=== PATIENT | female | born 1960 | race Caucasian/White ===

== ENCOUNTER 2021-03-23 06:41 | Inpatient (IN) ==
[2021-03-23] MEDS ORDERED: 0.9 % Sodium Chloride 1,000 ML IVC ONE (07:33)
[2021-03-23] MEDS ORDERED: Isovue-370 500 ML BOTTLE IVP ONE (07:33)
[2021-03-23 07:35] LABS: Basophils % 0.4 %; Eosinophils # 0.1 K/mcL (0.0-0.6); Eosinophils % 1.7 %; Hematocrit 40.8 % (35.3-44.9); Hemoglobin 13.5 g/dL (11.5-15.4); Immature Granulocytes % 0.4 % (0-4); Lymphocytes # 1.2 K/mcL (0.6-4.6); Lymphocytes % 17.3 %; Mean Corpuscular HGB Conc 33.1 g/dL (31.6-35.5); Mean Corpuscular Hemoglobin 30.4 pg (28.0-33.3); Mean Corpuscular Volume 91.9 fL (83.0-100.0); Mean Platelet Volume 9.9 fL (9.4-12.4); Monocytes # 0.5 K/mcL (0.0-1.3); Monocytes % 6.5 %; Neutrophils # 5.3 K/mcL (1.6-8.9); Platelet Count 183 K/mcL (140-400); Red Blood Count 4.44 M/mcL (3.82-4.97); Red Cell Distribution Width 13.4 % (11.5-14.5); Segmented Neutrophils % 73.7 %; White Blood Count 7.1 K/mcL (4.3-11.1)
[2021-03-23 07:47] LABS: INR 1.1; Prothrombin Time 12.4 Seconds (9.4-12.1)
[2021-03-23 07:49] LABS: Activated Partial Thrombo Time 31.5 Seconds (26.0-36.0)
[2021-03-23 07:58] LABS: Alanine Aminotransferase 29 Units/L (7-52); Albumin/Globulin Ratio 1.6 (1.1-2.2); Alkaline Phosphatase 56 Units/L (34-104); Aspartate Amino Transferase 18 Units/L (13-39); BUN/Creatinine Ratio 33 (6-26); Bilirubin,Direct 0.2 mg/dL (0.0-0.2); Bilirubin,Indirect 0.6 mg/dL (0.0-1.0); Bilirubin,Total 0.8 mg/dL (0.3-1.0); Blood Urea Nitrogen 24 mg/dL (6-20); Calcium 8.8 mg/dL (8.6-10.3); Carbon Dioxide 26 mEq/L (23-29); Chloride 106 mEq/L (98-107); Globulin 2.5 g/dL (2.4-3.5); Glucose 128 mg/dL (70-105); Osmolality,Calculated 294 (280-300); Potassium 3.5 mEq/L (3.5-5.1); Sodium 139 mEq/L (136-145); Total Protein 6.5 g/dL (6.4-8.9); Troponin I < 0.03 ng/mL (< 0.04); eGFR For African Americans > 60 (> 60); eGFR For Non-African Americans > 60 (> 60)
[2021-03-23 08:07] LABS: Magnesium 1.8 mg/dL (1.6-2.6)
[2021-03-23 08:20] LABS: Thyroid Stimulating Hormone 2.364 mcIU/mL (0.340-5.600)
[2021-03-23 08:48] LABS: Adenovirus Not Detected (Not Detect); Bordetella Pertussis Not Detected (Not Detect); Chlamydophila pneumoniae Not Detected (Not Detect); Coronavirus 229E Not Detected (Not Detect); Coronavirus HKU1 Not Detected (Not Detect); Coronavirus NL63 Not Detected (Not Detect); Coronavirus OC43 Not Detected (Not Detect); Human Metapneumovirus DETECTED (Not Detect); Human Rhinovirus/Enterovirus Not Detected (Not Detect); Influenza A Subtype 2009 H1 Not Detected (Not Detect); Influenza B Not Detected (Not Detect); Mycoplasma pneumoniae Not Detected (Not Detect); Parainfluenza Virus 1 Not Detected (Not Detect); Parainfluenza Virus 2 Not Detected (Not Detect); Parainfluenza Virus 3 Not Detected (Not Detect); Parainfluenza Virus 4 Not Detected (Not Detect); Respiratory Syncytial Virus Not Detected (Not Detect); SARS-CoV-2 Not Detected (Not Detect)
[2021-03-23] MEDS ORDERED: Naloxone 0.4 MG/ML INJ IVP PRN (10:58)
[2021-03-23] MEDS ORDERED: Ondansetron 4 MG/2 ML VIAL IVP PRN (10:58)
[2021-03-23] MEDS ORDERED: Perflutren Lipid Microsphere 1.3 ML in 0.9 % Sodium Chloride 8.7 ML IVP PRN (11:07)
[2021-03-23] MEDS ORDERED: *HR* Heparin 5,000 UNIT/ML VIAL IVP PRN ×2 (11:09)
[2021-03-23] MEDS ORDERED: *HR* Heparin 5,000 UNIT/ML VIAL IVP ONE (11:09)
[2021-03-23] MEDS: DilTIAZem 50 MG/50 ML IV.SOLN IVC SCH ×2 (11:47→18:02)
[2021-03-23] MEDS: Heparin 25,000UNIT/250ML 1/2NS 25,000 UNIT/250 ML IV.SOLN IVC SCH (13:11)
[2021-03-23] MEDS ORDERED: traZODone 50 MG TABLET PO ONE (22:27)
[2021-03-24] MEDS: DilTIAZem 50 MG/50 ML IV.SOLN IVC SCH (02:07)
[2021-03-24 04:35] LABS: Basophils % 0.3 %; Eosinophils # 0.2 K/mcL (0.0-0.6); Eosinophils % 2.8 %; Hematocrit 37.7 % (35.3-44.9); Hemoglobin 12.3 g/dL (11.5-15.4); Immature Granulocytes % 0.2 % (0-4); Lymphocytes # 1.5 K/mcL (0.6-4.6); Lymphocytes % 24.6 %; Mean Corpuscular HGB Conc 32.6 g/dL (31.6-35.5); Mean Corpuscular Hemoglobin 29.9 pg (28.0-33.3); Mean Corpuscular Volume 91.5 fL (83.0-100.0); Monocytes # 0.4 K/mcL (0.0-1.3); Monocytes % 6.3 %; Neutrophils # 4.1 K/mcL (1.6-8.9); Platelet Count 146 K/mcL (140-400); Red Blood Count 4.12 M/mcL (3.82-4.97); Red Cell Distribution Width 13.5 % (11.5-14.5); Segmented Neutrophils % 65.8 %; White Blood Count 6.2 K/mcL (4.3-11.1)
[2021-03-24 04:54] LABS: BUN/Creatinine Ratio 28 (6-26); Blood Urea Nitrogen 19 mg/dL (6-20); Calcium 8.6 mg/dL (8.6-10.3); Carbon Dioxide 24 mEq/L (23-29); Chloride 109 mEq/L (98-107); Glucose 110 mg/dL (70-105); Magnesium 1.9 mg/dL (1.6-2.6); Osmolality,Calculated 289 (280-300); Potassium 3.3 mEq/L (3.5-5.1); Sodium 138 mEq/L (136-145); eGFR For African Americans > 60 (> 60); eGFR For Non-African Americans > 60 (> 60)
[2021-03-24] MEDS: Heparin 25,000UNIT/250ML 1/2NS 25,000 UNIT/250 ML IV.SOLN IVC SCH (05:16)
[2021-03-24] MEDS: Acetaminophen 325 MG TABLET PO PRN (07:49)
[2021-03-24] MEDS ORDERED: Metoprolol XL (24 HR) Succ 50 MG TAB.ER.24H PO SCH (09:00)
[2021-03-24] MEDS ORDERED: Metoprolol XL (24 HR) Succ 25 MG TAB.ER.24H PO ONE (11:45)
[2021-03-24] MEDS ORDERED: Furosemide 20 MG/2 ML VIAL IVP ONE (11:48)
[2021-03-24] MEDS: Magnesium Oxide 400 MG TABLET PO SCH (12:00)
[2021-03-24] MEDS ORDERED: traZODone 50 MG TABLET PO PRN (20:25)
[2021-03-25] MEDS: Heparin 25,000UNIT/250ML 1/2NS 25,000 UNIT/250 ML IV.SOLN IVC SCH (02:38)
[2021-03-25 05:37] LABS: BUN/Creatinine Ratio 22 (6-26); Blood Urea Nitrogen 14 mg/dL (6-20); Carbon Dioxide 25 mEq/L (23-29); Chloride 106 mEq/L (98-107); Glucose 107 mg/dL (70-105); Osmolality,Calculated 289 (280-300); Potassium 3.6 mEq/L (3.5-5.1); Sodium 139 mEq/L (136-145); eGFR For African Americans > 60 (> 60); eGFR For Non-African Americans > 60 (> 60)
[2021-03-25] MEDS: Magnesium Oxide 400 MG TABLET PO SCH (12:32)
[2021-03-25] MEDS: Metoprolol XL (24 HR) Succ 50 MG TAB.ER.24H PO SCH (12:33)
[2021-03-25] MEDS ORDERED: Lidocaine Viscous Oral Soln 15 ML SOLUTION MM PRN (12:55)
[2021-03-25] MEDS ORDERED: 0.9 % Sodium Chloride 500 ML IVC ONE (12:56)
[2021-03-25] MEDS: *HR* Midazolam HCl 5 MG/5 ML VIAL IVP PRN ×4 (13:40→14:00)
[2021-03-25] MEDS: *HR* FentaNYL (PF) 100 MCG/2 ML VIAL IVP PRN ×3 (13:40→13:55)
[2021-03-25] MEDS: Apixaban 5 MG TABLET PO SCH (20:51)
[2021-03-25] MEDS: *HR* Amiodarone 200 MG TABLET PO SCH (20:51)
[2021-03-25] MEDS: Acetaminophen 325 MG TABLET PO PRN (20:52)
[2021-03-26 03:31] LABS: Basophils % 0.5 %; Eosinophils # 0.2 K/mcL (0.0-0.6); Eosinophils % 2.9 %; Hematocrit 37.6 % (35.3-44.9); Hemoglobin 12.2 g/dL (11.5-15.4); Immature Granulocytes % 0.3 % (0-4); Lymphocytes # 1.6 K/mcL (0.6-4.6); Lymphocytes % 25.4 %; Mean Corpuscular HGB Conc 32.4 g/dL (31.6-35.5); Mean Corpuscular Hemoglobin 30.1 pg (28.0-33.3); Mean Corpuscular Volume 92.8 fL (83.0-100.0); Mean Platelet Volume 10.2 fL (9.4-12.4); Monocytes # 0.6 K/mcL (0.0-1.3); Monocytes % 9.5 %; Neutrophils # 3.8 K/mcL (1.6-8.9); Platelet Count 165 K/mcL (140-400); Red Blood Count 4.05 M/mcL (3.82-4.97); Red Cell Distribution Width 13.6 % (11.5-14.5); Segmented Neutrophils % 61.4 %; White Blood Count 6.2 K/mcL (4.3-11.1)
[2021-03-26 03:56] LABS: BUN/Creatinine Ratio 28 (6-26); Blood Urea Nitrogen 20 mg/dL (6-20); Calcium 8.6 mg/dL (8.6-10.3); Carbon Dioxide 26 mEq/L (23-29); Chloride 107 mEq/L (98-107); Glucose 108 mg/dL (70-105); Osmolality,Calculated 289 (280-300); Potassium 3.4 mEq/L (3.5-5.1); Sodium 138 mEq/L (136-145); eGFR For African Americans > 60 (> 60); eGFR For Non-African Americans > 60 (> 60)
[2021-03-26] MEDS ORDERED: Regadenoson 0.4 MG/5 ML SYRINGE IVP ONE (06:24)
[2021-03-26] MEDS ORDERED: Spironolactone 25 MG TABLET PO SCH (09:00)
[2021-03-26] MEDS ORDERED: lisinopriL 5 MG TABLET PO SCH ×2 (09:00)
[2021-03-26] MEDS ORDERED: FLUoxetine 20 MG CAPSULE PO SCH (09:00)
[2021-03-26] MEDS ORDERED: Sucralfate 1 GM TABLET PO SCH (09:00)
[2021-03-26] MEDS ORDERED: NON-FORMULARY MEDICATION 1 EACH EACH (Pantoprazole Sodium [Protonix] 40 MG Tablet.Dr) PO SCH (09:00)
[2021-03-26 09:01] VITALS: PULSE 58; O2SAT 95
[2021-03-26] MEDS: Metoprolol XL (24 HR) Succ 50 MG TAB.ER.24H PO SCH (09:12)
[2021-03-26] MEDS: Apixaban 5 MG TABLET PO SCH (09:12)
[2021-03-26] MEDS: Magnesium Oxide 400 MG TABLET PO SCH (09:12)
[2021-03-26] MEDS: *HR* Amiodarone 200 MG TABLET PO SCH (09:12)
[2021-03-26 11:40] VITALS: BP 113/76; TEMP 98.1
[2021-03-27] MEDS ORDERED: *HR* Amiodarone 200 MG TABLET PO SCH (09:00)
== END 2021-03-26 15:09 | disposition home or self-care (01) | DRG 871 ==
LOC: EMEROOARM 06:41 → 3ANU 06:41 → SUATTDRO 03-25 15:46
PROVIDERS: ADMIT Pharmacist; ATTEND Internal Medicine